=== PATIENT | female | born 1945 | race Caucasian/White ===

== ENCOUNTER 2017-07-21 13:24 | Emergency (ER) | payer MEDICARE ==
[2012-02-23 14:58] VITALS: BMI 46.6
== END 2017-07-21 18:15 | disposition home or self-care (01) ==
LOC: D.ER 13:24
DX: S89.91XA Unspecified injury of right lower leg, initial encounter (principal); W19.XXXA Unspecified fall, initial encounter; Y93.89 Activity, other specified; Y92.019 Unspecified place in single-family (private) house as the place of occurrence of the external cause; I10 Essential (primary) hypertension

== ENCOUNTER → 2017-08-30 16:08 | Outpatient (CLI) | payer OTHER ==
[2012-02-23 14:58] VITALS: BMI 46.6
== END | disposition home or self-care (01) ==
LOC: D.MRI 16:08
DX: M25.562 Pain in left knee (principal)

== ENCOUNTER → 2018-07-21 09:20 | Outpatient (CLI) | payer OTHER ==
[2012-02-23 14:58] VITALS: BMI 46.6
== END | disposition home or self-care (01) ==
LOC: D.LABREF 09:20
PROVIDERS: ATTEND Orthopaedic Surgery
DX: M17.12 Unilateral primary osteoarthritis, left knee (principal)

== ENCOUNTER 2018-07-26 11:14 | Inpatient (IN) | payer OTHER ==
[2018-08-09] MEDS ORDERED: triam/hctz (15:44)
[2018-08-09] MEDS ORDERED: MOBIC7.5 MG PO (15:45)
[2018-08-09] MEDS ORDERED: TOPROL XL25 MG PO (15:45)
[2018-08-09] MEDS ORDERED: [UNRECOGNIZED DRUG - REMARK] PO (15:46)
[2018-08-09] MEDS ORDERED: IPRAT-ALBUT 0.5-3 ML UPD (15:48)
[2018-08-10 10:59] LABS: APPEARANCE CLEAR (CLEAR); COLOR YELLOW (YELLOW); NITRITE NEGATIVE (NEGATIVE); SPECIFIC GRAVITY 1.005 (1.005-1.020)
[2018-08-10 11:00] LABS: BASOPHILS 0.2 % (0-2); EOSINOPHILS 1.1 % (0-7); HEMATOCRIT 40.5 % (36.0-48.0); HEMOGLOBIN 13.5 g/dL (12-16); IMMATURE GRANULOCYTES 0.3 % (0-5); LYMPHOCYTES 32.9 % (15-50); MCH 31.8 pg (26.0-34.0); MCHC 33.3 g/dL (31.0-37.0); MCV 95.3 fL (80.0-100.0); MEAN PLATELET VOLUME 10.1 fL (7.4-10.4); MONOCYTES 7.9 % (2-11); NEUTROPHILS 57.6 % (40-80); PLATELET COUNT 189 10x3/uL (130-400); RBC 4.25 10x6/uL (4.00-5.40); RDW 14.2 % (11.5-14.5); WBC 6.6 10x3/uL (4.8-10.8)
[2018-08-10 11:00] LABS: BILIRUBIN NEGATIVE (NEGATIVE); GLUCOSE NEGATIVE (NEGATIVE); KETONE NEGATIVE (NEGATIVE); PROTEIN NEGATIVE (NEGATIVE); UROBILINOGEN NORMAL (NORMAL)
[2018-08-10 11:14] LABS: CALC OSMOLALITY 284 mosm/kg (275-300); CALCIUM 8.7 mg/dL (8.5-10.1); CARBON DIOXIDE 32.6 mmol/L (21.0-32.0); CHLORIDE - SERUM 105 mmol/L (98-107); CREATININE - SERUM 0.8 mg/dL (0.6-1.3); GLUCOSE 90 mg/dL (74-106); POTASSIUM - SERUM 3.7 mmol/L (3.5-5.1); SODIUM 142 mmol/L (136-145); UREA NITROGEN 19 mg/dL (7-18); eGFR NON AFRICAN AMERICAN 75 mL/min (90-120)
[2018-08-10 11:18] LABS: APTT 27.4 SECONDS (22.8-39.4); INR 1.02 (0.85-1.17); PROTIME 12.9 SECONDS (11.6-15.0)
[2018-08-16 06:22] VITALS: BP 153/77; BMI 43.6
--- NOTE | 2018-08-16 08:21 | NUR ---
PLASMA BLADE SET TO 6/8 BOVIE PAD RIGHT THIGH [id number] EXP 10/15/2019
--- NOTE | 2018-08-16 08:26 | NUR ---
PREPPED FROM TOURNIQUET TO TOES CIRCUMFERENTIALLY
--- NOTE | 2018-08-16 11:16 | OP ---
PATIENT NAME: LUIS A BRYAN MEDICAL RECORD: [id number] :[birth year] [place] [place] DATE:08/16/18 SURGEON: YONI AMBRIZ DO DATE OF OPERATION: 08/16/2018 PROCEDURE PERFORMED: Left total knee arthroplasty. PREOPERATIVE DIAGNOSIS: Left knee osteoarthritis. POSTOPERATIVE DIAGNOSIS: Left knee osteoarthritis. INDICATIONS: Ms. Bryan is a 72-year-old female, who has had all conservative measures tried with her knee. She was complaining of pain and it was affecting her activities of daily living. She had x-rays done and it showed severe end-stage osteoarthritis. This was noted on the x-rays. She had tried injections. She is also overweight. Her BMI is 43. She is aware of the increased risk of failure of the implant as well as infection due to her weight. She was okay with that risk. She is tired dealing with the pain. The other risks including fracture, bleeding, damage to nerve and vessels, need for further surgery, and she signed the consent. SURGEON: Yoni Ambriz DO. SPRAY STAINER: I was assisted by Mando Novak, advanced nurse practitioner. He assisted with retraction and closing. This could not have been performed without him. DESCRIPTION OF PROCEDURE: The patient was given a block by anesthesia in the preoperative area and taken to the operative suite, laid in the supine position, given general anesthetic and an LMA was placed. The left lower extremity was prepped and draped in sterile fashion. The patient was given 2 grams of Ancef and 80 mg of gentamicin preoperatively and a gram of TXA. Once the left lower extremity was prepped and draped, a time-out was then performed and everyone was in agreement with the correct site, side, patient, and procedure. Fire risk was low. The incision was marked out and then covered in Ioban. Then began with a 10 blade scalpel down to the capsule itself. Capsule was cleared off. Any bleeders were coagulated with Aquamantys at that time. A fresh blade was then used through the medial parapatellar approach to the capsule and the bleeding was coagulated with Aquamantys. The patella was then everted and the fat pad was partially removed. The patella was milled down and sized to be a 31. The knee was then flexed up and a drill was used into the femoral canal. The distal femur cutting guide was then entered into the canal and pinned into place. The distal femur was then cut and the bone was removed. The tibia was then exposed. The proximal tibia was cut as well through the guide. The bone was then removed as well as the menisci on the medial and lateral sides and any bony fragments that were left. We then sized the femur, sized to be a 60. The 4-in-1 cutting block was then put into place and the femur was cut. Once the femur was cut, a PS guide was put on and the box was cut out for the posterior stabilized femur. This was done due to her instability that was checked prior to starting and the deformity of her knee. The lug holes were then drilled through that guide. This was removed and the 60 trial was put on and then the tibia was floated and ranged and rotation was marked. The patella was then drilled through the guide and this was all removed, tibia and femur. The tibia was exposed. Size of to be 67. This was drilled and punched and then irrigated. Extra holes were punched into the proximal tibia. Once that had OPERATIVE REPORT [id number] LUIS A BRYAN been drilled and punched, the cement was mixed. The cement was put into the tibia and on the implant, impacted in place. Excess cement was removed. The femur was then impacted on and the poly was put in-between. The knee was brought out to extension. Excess cement was removed. At that time, the poly on the patella was put on and held into place while the cement dried. Once the cement had dried, the knee had been thoroughly irrigated during the drying. A trial of 14 poly seemed to fit well, had good medial and lateral stability and good in extension and flexion and filled up the knee nicely. She did not hyperextend and she had good range of motion with this. A 16 was tried to be put in, but was too tight. Once the trial was tried and then the actual implant was opened and a 14 posterior stabilized constraint bearing poly was put in and the locking mechanism was put in on the tibia. The knee was then irrigated one more time and Surgicel powder as well as vancomycin and tobramycin powder put in the knee. The capsule was then closed with #2 Ethibond in a [id number] fashion and the capsule was irrigated. Extra vancomycin and tobramycin powder was put on that. Skin was closed with 2-0 Vicryl in an inverted interrupted fashion. ZipLine was placed on the knee. Adaptic, 4 x 4s, ABD, Webril and Benjamin wrap were then placed on the knee. NASIR hose stocking was placed up to the knee. The patient was awakened and taken to recovery in stable condition. Blood loss was approximately 200 mL. A second gram of TXA was given prior to closing the skin. Complications were none. TRANSINT:[id number] Voice Confirmation ID: [id number] DOCUMENT ID: [id number] YONI AMBRIZ DO at 1116 CC: [id number] DICTATION DATE: 08/16/18 0939 DIRECTOR OF SPORTS PERFORMANCE: 08/16/18 1009 ADM IN [place] [id number] [place] [address]
[2018-08-16 16:05] VITALS: BP 109/74
[2018-08-16 16:35] VITALS: BP 122/79; BMI 43.6
--- NOTE | 2018-08-16 20:00 | NUR ---
RESTING IN BED, CPM IN USE, DENIES PAIN, SEE SHIFT ASSESSMENT, CALL LIGHT IN REACH
[2018-08-16 22:16] VITALS: BP 118/57
[2018-08-17 04:51] VITALS: BP 112/46
[2018-08-17 05:42] LABS: BASOPHILS 0.2 % (0-2); EOSINOPHILS 0.2 % (0-7); HEMATOCRIT 36.4 % (36.0-48.0); HEMOGLOBIN 11.7 g/dL (12-16); IMMATURE GRANULOCYTES 0.3 % (0-5); LYMPHOCYTES 11.4 % (15-50); MCH 31.1 pg (26.0-34.0); MCHC 32.1 g/dL (31.0-37.0); MCV 96.8 fL (80.0-100.0); MEAN PLATELET VOLUME 11.2 fL (7.4-10.4); MONOCYTES 7.2 % (2-11); NEUTROPHILS 80.7 % (40-80); PLATELET COUNT 170 10x3/uL (130-400); RBC 3.76 10x6/uL (4.00-5.40); RDW 14.3 % (11.5-14.5); WBC 6.1 10x3/uL (4.8-10.8)
[2018-08-17 05:49] LABS: CALC OSMOLALITY 282 mosm/kg (275-300); CALCIUM 8.4 mg/dL (8.5-10.1); CARBON DIOXIDE 31.1 mmol/L (21.0-32.0); CHLORIDE - SERUM 103 mmol/L (98-107); CREATININE - SERUM 0.7 mg/dL (0.6-1.3); GLUCOSE 107 mg/dL (74-106); SODIUM 140 mmol/L (136-145); UREA NITROGEN 23 mg/dL (7-18); eGFR NON AFRICAN AMERICAN 88 mL/min (90-120)
--- NOTE | 2018-08-17 07:58 | NUR ---
PT RESTING IN BED. "WAITING ON BREAKFAST". NO S/S OF ACUTE DISTRESS. CL IN PLACE.
[2018-08-17 08:30] VITALS: BP 120/54
[2018-08-17 12:11] VITALS: BMI 43.5
[2018-08-17 14:08] VITALS: BP 105/52
[2018-08-17 16:44] VITALS: BP 119/71
--- NOTE | 2018-08-17 20:00 | NUR ---
RESTING IN BED CPM IN USE, DENIES PAIN, SEE SHIFT ASSESSMENT, CALL LIGHT IN REACH
[2018-08-17 22:53] VITALS: BP 108/54
[2018-08-18 05:24] VITALS: BP 134/56
[2018-08-18 06:45] LABS: BASOPHILS 0.2 % (0-2); EOSINOPHILS 0.6 % (0-7); HEMATOCRIT 35.3 % (36.0-48.0); HEMOGLOBIN 11.3 g/dL (12-16); IMMATURE GRANULOCYTES 0.8 % (0-5); MCV 96.7 fL (80.0-100.0); MEAN PLATELET VOLUME 10.8 fL (7.4-10.4); MONOCYTES 14.4 % (2-11); PLATELET COUNT 152 10x3/uL (130-400); RBC 3.65 10x6/uL (4.00-5.40); RDW 14.3 % (11.5-14.5); WBC 6.6 10x3/uL (4.8-10.8)
[2018-08-18 07:01] LABS: CALC OSMOLALITY 281 mosm/kg (275-300); CALCIUM 8.1 mg/dL (8.5-10.1); CARBON DIOXIDE 29.5 mmol/L (21.0-32.0); CHLORIDE - SERUM 102 mmol/L (98-107); CREATININE - SERUM 0.6 mg/dL (0.6-1.3); GLUCOSE 106 mg/dL (74-106); POTASSIUM - SERUM 3.7 mmol/L (3.5-5.1); SODIUM 140 mmol/L (136-145); UREA NITROGEN 20 mg/dL (7-18); eGFR NON AFRICAN AMERICAN > 90 mL/min (90-120)
--- NOTE | 2018-08-18 08:02 | NUR ---
INCONTINENT OF URINE. SKIN CARE AND LINENS CHANGED PER STAFF. A/O X3. NO C/O AT THIS TIME. LUNGS ARE DIMINISHED ON RIGHT SIDE WITH FAINT CRACKELS NOTED THROUGHOUT, ENCOURAGED TO USE IS WA. SKIN IS INTACT WITHOUT REDNESS EXCPET INCISION TO LEFT KNEE WHICH HAS A DRY INTACT DRESSING IN PLACE. IV TO RIGHT FOREARM IS PATENT WITHOUT REDNESS AT INSERTION SITE. DENIES NEEDS.
[2018-08-18 08:40] VITALS: BP 144/78
--- NOTE | 2018-08-18 09:14 | MORECARE ---
CASE MANAGEMENT DISCHARGE SUMMARY PATIENT: LUIS A QUINONES CELESTINO UNIT: [id number] ADM DATE: 08/16/18 AGE: 72 : [birth year] SEX: F ROOM/BED: D.2209 AUTHOR: HIRAL BLACKMON PHYSICIAN: REFERRING PHYSICIAN: DANIELA AMBRIZ DO DATE OF SERVICE: 08/18/18 Discharge Plan Patient Name: LUIS A QUINONES Facility: [facility]:[place] : 1945 Planned Disposition: Anticipated Discharge Date: Discharge Date: Expected LOS: Initial Reviewer: [email or web address] Initial Review Date: 08/16/2018 Generated: 08/18/18 10:13 am Comments DCP- Discharge Planning Updated by [email or web address]: Angeline Hartman on 08/18/18 8:[address] REFERRAL SENT TO [facility] (DR AMBRIZ STATED THAT IS WHERE THE PATIENT WANTS TO GO) TO START THE AUTH PROCESS. External Providers External Provider: [facility] Next Contact Date: Service Request Date: Service Type: Resolution: Reviewer: Comments: Patient Name: LUIS A QUINONES Page 19709 at 0914 All edits/amendments must be made on the electronic document DICTATION DATE: 08/18/18912 MACHINE RUG CLEANER: CLIFF 08/18/18912 RPT#: [id number] DC DATE: STATUS: ADM IN [place] [address] [place] [address] END OF REPORT
--- NOTE | 2018-08-18 11:17 | NUR ---
pt sitting p in chair at bedside, no s/s of distress, call light in reach, pt resting, easily awakened. continue with plan of care
[2018-08-18 12:40] VITALS: BP 127/63
[2018-08-18 17:34] VITALS: BP 126/69
--- NOTE | 2018-08-18 20:00 | NUR ---
ALERT RESTING IN BED, CPM IN USE TOLERATING WELL, SEE SHIFT ASSESSMENT, CALL LIGHT IN REACH
[2018-08-19 00:09] VITALS: BP 109/55
[2018-08-19 04:59] VITALS: BP 118/69
[2018-08-19 05:44] LABS: HEMATOCRIT 33.4 % (36.0-48.0); HEMOGLOBIN 11.3 g/dL (12-16); MCH 32.2 pg (26.0-34.0); MCHC 33.8 g/dL (31.0-37.0); MCV 95.2 fL (80.0-100.0); MEAN PLATELET VOLUME 10.7 fL (7.4-10.4); NEUTROPHILS 58.3 % (40-80); PLATELET COUNT 147 10x3/uL (130-400); RBC 3.51 10x6/uL (4.00-5.40); RDW 13.5 % (11.5-14.5); WBC 6.9 10x3/uL (4.8-10.8)
[2018-08-19 05:45] LABS: CALC OSMOLALITY 279 mosm/kg (275-300); CALCIUM 8.3 mg/dL (8.5-10.1); CARBON DIOXIDE 32.3 mmol/L (21.0-32.0); CHLORIDE - SERUM 103 mmol/L (98-107); CREATININE - SERUM 0.6 mg/dL (0.6-1.3); GLUCOSE 101 mg/dL (74-106); POTASSIUM - SERUM 3.4 mmol/L (3.5-5.1); SODIUM 139 mmol/L (136-145); UREA NITROGEN 18 mg/dL (7-18); eGFR NON AFRICAN AMERICAN > 90 mL/min (90-120)
--- NOTE | 2018-08-19 07:30 | NUR ---
PT RESTING IN BED WITH EYES CLOSED. NO ACUTE DISTRESS NOTED. OPENS EYES AND RESPONDS APPROPRIATELY WITH NAME CALLED. PT INCONTINENT OF URINE AT THIS TIME. PROVIDED LALO CARE. IV TO RIGHT FOREARM WITH NS @ 20ML/HR INFUSING VIA PUMP. SITE WITHOUT REDNESS OR EDEMA. DRESSING C/D/I TO LEFT LOWER EXTREMITY. DENIES PAIN AT THIS TIME. DENIES FURTHER NEEDS AT THIS TIME. CL WITHIN REACH. ENCOURAGED TO CALL WITH NEEDS. CONTINUE POC
[2018-08-19 09:25] VITALS: BP 115/55
[2018-08-19 13:28] VITALS: BP 119/42
--- NOTE | 2018-08-19 14:25 | MORECARE ---
CASE MANAGEMENT DISCHARGE SUMMARY PATIENT: LUIS A QUINONES CELESTINO UNIT: [id number] ADM DATE: 08/16/18 AGE: 72 : 47 SEX: F ROOM/BED: D.2205 AUTHOR: HIRAL BLACKMON PHYSICIAN: REFERRING PHYSICIAN: DANIELA AMBRIZ DO DATE OF SERVICE: 08/19/18 Discharge Plan Patient Name: LUIS A QUINONES Facility: [facility]:[place] : 1945 Planned Disposition: Fdc Facility Anticipated Discharge Date: Discharge Date: Expected LOS: Initial Reviewer: [id number] Initial Review Date: 08/16/2018 Generated: 08/19/18 3:25 pm Comments DCP- Discharge Planning Updated by [email or web address]: Angeline Hartman on 08/19/18 1:[address] Patient Name: LUIS A QUINONES Admission Status: Elective Accout number: [id number] Admission Date: 08-16-2018 : 1945 Admission Diagnosis:UNILATERAL PRIMARY OSTEOARTHRITIS, LEFT KNEE Attending: DANIELA AMBRIZ Current LOS: 3 Anticipated DC Date: Planned Disposition: Fdc Facility Primary Insurance: [id number] Discharge Planning Comments: CM met with patient to assess discharge planning needs. Patient stated that she lives independent with her daughter. At discharge she plans to go to [facility] for rehab. She stated that her daughter work there and that is where she wants to go. She has a managed medicare, so she will need pre-auth before she can go. I called Farida at [facility] and she stated that they will not have a room till wed or and she can not start on the auth till closer to then because they are only good for 48 hours. I went and spoke with patient again and she still wants [facility]. CM will continue to follow and assist. Inspecting Engineer: Angeline Hartman DCP- Discharge Planning Updated by [id number]: Angeline Hartman on 08/18/18 8:[address] REFERRAL SENT TO [facility] (DR AMBRIZ STATED THAT IS WHERE THE PATIENT WANTS TO GO) TO START THE AUTH PROCESS. DCPIA - Discharge Planning Initial Assessment Updated by [email or web address]: Angeline Hartman on 08/19/18 2:20 pm * Is the patient Alert and Oriented? Yes * How many steps to enter\exit or inside your home? * PCP THELMA * [facility] * Preadmission Environment Home with Family * ADLs Independent * Equipment Cane Walker * List name and contact numbers for known caregivers / representatives who currently or will assist patient after discharge: TETO BARNETT (DAUGHTER) [phone] * Verbal permission to speak to the caregivers and representatives has been obtained from the patient. N/A * Community resources currently utilized None * Additional services required to return to the preadmission environment? Yes * Can the patient safely return to the preadmission environment? No * Has this patient been hospitalized within the prior 30 days at any hospital? No Coverage Notice Reviewer: [id number] - Angeline Hartman Notice Issued Date-Time: 08/19/2018 14:10 Notice Type: Patient Choice Letter Notice Delivered To: Patient Relationship to Patient: Professor Of Latin American Studies Name: Delivery Method: HAND - Hand Delivered Maria C Days: Prior Verbal Notification: Recipient Understood Notice: Yes Recipient Signature: Yes Med Rec Note Co-signed by Attending: Coverage Notice Comment: Last DP export: 08/18/18 8:14 a Patient Name: LUIS A QUINONES Page [phone] at 1429 All edits/amendments must be made on the electronic document DICTATION DATE: 08/19/181423 GROUT MACHINE TENDER: CLIFF 08/19/181423 RPT#: [id number] DC DATE: STATUS: ADM IN [facility] [address] [place] [address] END OF REPORT
--- NOTE | 2018-08-19 14:28 | NUR ---
OT NOTE: PT RETURNED FROM CHAIR TO BED WITH ASSIST OF PHYSICAL THERAPY AND MAX ASSIST. PT WAS UNABLE TO BEAR WT THROUGH L LE. BED MOB BACK TO BED WITH MOD ASSIST WITH USE OF TRAPEZE BAR. PT PLACED ON CPM. PT ABLE TO PERFORM UE STRENGTHENING EXS WITH USE OF TRAPEZE BAR. WILL ATTEMPT TO RETURN FOLLOWING CPM USAGE TO PRACTICED EOB SITTING. LINDA TYSON, OTR/L
[2018-08-19 17:06] VITALS: BP 145/64
--- NOTE | 2018-08-19 19:00 | NUR ---
REPORT RECEIVED AND CARE OF PT ASSUMED. PT LYING IN SUPINE POSITION WATCHING TV. IV IN RIGHT FA PATENT WITH NS INFUSING AT KVO. DRESSING ON LEFT KNEE CLEAN AND DRY. WILL MONITOR FOR NEEDS.
[2018-08-19 21:20] VITALS: BP 118/54
--- NOTE | 2018-08-19 21:32 | NUR ---
HS MEDICATIONS GIVEN. ASSISTED PT TO USE BEDPAN AND CHANGED BEDPADS. WILL CONTINUE TO MONITOR FOR NEEDS.
--- NOTE | 2018-08-19 22:22 | NUR ---
GAVE BENADRYL 25 MG IVP PER PT REQUEST ASA SLEEP AIDE. WILL CONTINUE TO MONITOR FOR NEEDS.
--- NOTE | 2018-08-20 02:06 | NUR ---
GAVE OXY 10 MG PO AND VISTARIL FOR C/O PAIN AND RESTLESSNESS. ASSISTED IN CHANGING BED DUE TO INCONTINENCE EPISODE. WILL CONTINUE TO MONITOR FOR NEEDS.
[2018-08-20 05:43] LABS: BASOPHILS 0.1 % (0-2); EOSINOPHILS 0.9 % (0-7); HEMATOCRIT 33.9 % (36.0-48.0); HEMOGLOBIN 11.1 g/dL (12-16); IMMATURE GRANULOCYTES 0.5 % (0-5); LYMPHOCYTES 30.1 % (15-50); MCH 31.2 pg (26.0-34.0); MCHC 32.7 g/dL (31.0-37.0); MCV 95.2 fL (80.0-100.0); MEAN PLATELET VOLUME 10.8 fL (7.4-10.4); MONOCYTES 11.7 % (2-11); NEUTROPHILS 56.7 % (40-80); PLATELET COUNT 174 10x3/uL (130-400); RBC 3.56 10x6/uL (4.00-5.40); WBC 7.5 10x3/uL (4.8-10.8)
[2018-08-20 05:59] LABS: CALC OSMOLALITY 285 mosm/kg (275-300); CALCIUM 8.3 mg/dL (8.5-10.1); CHLORIDE - SERUM 104 mmol/L (98-107); CREATININE - SERUM 0.6 mg/dL (0.6-1.3); GLUCOSE 100 mg/dL (74-106); POTASSIUM - SERUM 3.4 mmol/L (3.5-5.1); SODIUM 143 mmol/L (136-145); UREA NITROGEN 15 mg/dL (7-18); eGFR NON AFRICAN AMERICAN > 90 mL/min (90-120)
--- NOTE | 2018-08-20 07:28 | NUR ---
PT IS RESTING IN BED WITH EYES CLOSED. RESPIRATIONS ARE EVEN AND UNLABORED. PT REQUESTS ASSISTANCE FOR BED CORCORAN. PT ASSISTED ON BED CORCORAN. PT EDUCATED ON IMPORTANCE OF AMBULATION POST PROCEDURE. PT VERBALIZES UNDERSTANDING. PT REQUESTS TO NOT BE PLACED ON CPM MACHINE AT THIS TIME AND WOULD LIKE TO WAIT UNTIL AFTER BREAKFAST. PT TO NOTIFY NURSE WHEN PT IS FINISGHED WITH BREAKFAST. DRESSING TO LEFT KNEE IS C/D/I. PT DENIES PRESENCE OF N/V AND PAIN AT THIS TIME. BED IS IN THE LOWEST POSITION. CALL LIGHT AND BEDSIDE TABLE ARE WITHIN REACH. SIDE RAILS X 2. WILL CONT TO MONITOR.
[2018-08-20 09:08] VITALS: BP 143/65
[2018-08-20 12:53] VITALS: BP 156/68
[2018-08-20 18:39] VITALS: BP 131/61
--- NOTE | 2018-08-20 19:23 | NUR ---
PATIENT RESTING IN BED WITH EYES CLOSED AND NO S/S OF DISTRESS. PATIENT ON CPM MACHINE. BED IN LOWEST POSITION AND CALL LIGHT WITHIN REACH. WILL CONTINUE TO MONITOR.
[2018-08-20 19:53] VITALS: BP 123/85
[2018-08-21 04:58] VITALS: BP 114/60
[2018-08-21 05:36] LABS: BASOPHILS 0.4 % (0-2); EOSINOPHILS 0.5 % (0-7); HEMOGLOBIN 11.1 g/dL (12-16); IMMATURE GRANULOCYTES 0.5 % (0-5); LYMPHOCYTES 33.2 % (15-50); MCH 31.2 pg (26.0-34.0); MCHC 32.6 g/dL (31.0-37.0); MCV 95.5 fL (80.0-100.0); MEAN PLATELET VOLUME 10.6 fL (7.4-10.4); MONOCYTES 11.8 % (2-11); NEUTROPHILS 53.6 % (40-80); PLATELET COUNT 195 10x3/uL (130-400); RBC 3.56 10x6/uL (4.00-5.40); RDW 14.1 % (11.5-14.5); WBC 7.7 10x3/uL (4.8-10.8)
[2018-08-21 05:50] LABS: CALC OSMOLALITY 280 mosm/kg (275-300); CALCIUM 8.4 mg/dL (8.5-10.1); CARBON DIOXIDE 30.6 mmol/L (21.0-32.0); CHLORIDE - SERUM 100 mmol/L (98-107); CREATININE - SERUM 0.5 mg/dL (0.6-1.3); GLUCOSE 108 mg/dL (74-106); POTASSIUM - SERUM 3.8 mmol/L (3.5-5.1); SODIUM 139 mmol/L (136-145); UREA NITROGEN 18 mg/dL (7-18); eGFR NON AFRICAN AMERICAN > 90 mL/min (90-120)
--- NOTE | 2018-08-21 07:30 | NUR ---
AAOX4 RESP EVEN AND NONLABORED NO SIGNS OF DISTRESS NOTED, CMP ON AT THIS TIME PT LEG POSTIONED STRAIGHT AT THIS TIME CMP WORKING PROPERLY, CL IN REACH WILL CONTINUE TO MONITOR
--- NOTE | 2018-08-21 08:00 | NUR ---
UPON ENTERING THE ROOM THE PT HAD HER LEFT LEG TO THE SIDE AND HER KNEE WAS BENT OUT TOWARDS THE LEFT, PT STATES "SHE CAN NOT KEEP HER LEG AND KNEE STRAIGHT IN THE MACHINE" I EXPRESSED THE IMPORTANCE OF KEEPING HER LEG AND KNEE IN THE CMP PROPERLY AND THE PT EXPRESSED "YOU ALL ARE JUST STUPID AND DONT UNDERSTAND" I TOLD THE PT I WOULD LET THE DR KNOW WHAT WAS GOING ON, CL IN REACH
--- NOTE | 2018-08-21 09:00 | NUR ---
PHYSICAL THERAPY GLADYS STATED "HE WILL TALK TO AND TO ONLY HAVE THE PT ON THE CMP ONCE A DAY AND THAT HE WOULD BE THE ONE TO PUT IT ON HER" HE ALSO STATED "SHE IS ONLY ASSIST WITH PHYSICAL THERAPY AND TO NOT TRY AND GET THE PT UP"
[2018-08-21 09:26] VITALS: BP 142/74
[2018-08-21 13:27] VITALS: BP 152/75
--- NOTE | 2018-08-21 13:30 | NUR ---
CMP ON AT THIS TIME PER GLADYS PHYSICL THERAPY PT CAN COME OFF AT 1430
--- NOTE | 2018-08-21 14:23 | NUR ---
OT NOTE: PT WAS UP IN CHAIR..PREVIOUSLY DISCUSSED WITH PHYS THERAPY WHO STATED THAT HE HAD TO PIVOT HER WITH TOTAL ASSIST FROM BED TO CHAIR EARLIER. WE ATTEMPTED TO USE WALKER TO TRANSFER,WITH 2 PERSON ASSIST, BUT SEVERAL ATTEMTPS WERE MADE AND PT WAS UNABLE TO HOLD HERSELF UP WITH UES AND R LE. AGAIN PT WAS TRANSFERRED TO BED PIVOT AND TOTAL ASSIST. PT DOING WELL WITH BED MOB AND ABLE TO ROLL SIDE TO SIDE AND SCOOT UP IN BED ( WITH ASSIST OF TRAPEZE)..ABLE TO COMPLETE SIMPLE GROOMING TASKS, BUT TOTAL ASSIST WITH PERINEAL CARE AT THIS TIME. LINDA TYSON, OTR/L
--- NOTE | 2018-08-21 14:30 | NUR ---
CMP TAKEN OFF AT THIS TIME, WILL CONTINUE TO MONITOR, CL IN REACH
[2018-08-21 18:09] VITALS: BP 122/62
--- NOTE | 2018-08-21 19:46 | NUR ---
NOTIFIED BY THE STOCK HANDLER FLOORPERSON THAT THE PATIENT TOLD HIM SHE DID NOT WANT VITALS AND TOLD HIM TO GET OUT OF HER ROOM. I ENTERED THE PATIENT'S ROOM, INTRODUCED MYSELF, AND ASKED THE PATIENT WHY SHE DOES NOT WANT VITALS DONE. THE PATIENT STATED THAT THE STOCK HANDLER FLOORPERSON COULD COME BACK AND DO VITALS. PATIENT DENIES OTHER NEEDS AT THIS TIME. BED IN LOWEST POSITION AND CALL LIGHT WITHIN REACH. ENCOURAGED THE PATIENT TO CALL IF SHE HAS NEEDS. WILL CONTINUE TO MONITOR.
[2018-08-21 21:05] VITALS: BP 111/57
[2018-08-22 01:21] VITALS: BP 112/52
[2018-08-22 05:17] LABS: BASOPHILS 0.3 % (0-2); EOSINOPHILS 0.3 % (0-7); HEMATOCRIT 34.3 % (36.0-48.0); HEMOGLOBIN 11.4 g/dL (12-16); IMMATURE GRANULOCYTES 0.7 % (0-5); MCH 31.7 pg (26.0-34.0); MCHC 33.2 g/dL (31.0-37.0); MCV 95.3 fL (80.0-100.0); MONOCYTES 11.7 % (2-11); PLATELET COUNT 214 10x3/uL (130-400); RDW 13.8 % (11.5-14.5); WBC 8.6 10x3/uL (4.8-10.8)
[2018-08-22 05:35] LABS: CALC OSMOLALITY 280 mosm/kg (275-300); CALCIUM 8.9 mg/dL (8.5-10.1); CARBON DIOXIDE 31.6 mmol/L (21.0-32.0); CHLORIDE - SERUM 99 mmol/L (98-107); GLUCOSE 114 mg/dL (74-106); POTASSIUM - SERUM 3.6 mmol/L (3.5-5.1); SODIUM 139 mmol/L (136-145); UREA NITROGEN 19 mg/dL (7-18); eGFR NON AFRICAN AMERICAN 88 mL/min (90-120)
[2018-08-22 05:36] LABS: CREATININE - SERUM 0.7 mg/dL (0.6-1.3)
[2018-08-22 05:49] VITALS: BP 136/58
--- NOTE | 2018-08-22 07:15 | NUR ---
PATIENT RECIEVED RESTING IN BED, ASSISTED WITH BEDPAN. PATIENT DENIES PAIN AT THIS TIME. CL IN REACH
[2018-08-22 08:31] VITALS: BP 114/75
[2018-08-22 13:25] VITALS: BP 124/76
--- NOTE | 2018-08-22 14:58 | NUR ---
OT NOTE: PT REMAINS AT LEAST A 2 PERSON ASSIST WITH TRANSFERS. ATTEMPTED TRANSFER WITH 1 PERSON ON EACH SIDE AND ONE PERSON IN THE BACK TO HELP GET PT BACK INTO BED. SHE DOES NOT HAVE THE UE STRENGTH TO SUPPORT HERSELF WITH WALKER. MAX ASSIST TO GET LEGS BACK IN BED; EDUCATION ON USING FEET AND TRAPEZE TO MOVE IN THE BED..PT DOING WELL WITH THIS. TRANSFERS ARE NOT IMPROVING. ABLE TO PERFORM SIMPLE GROOMING AND FEEDING TASKS WITH SET UP; EDUCATED PT ON UE EXS TO PERFORM WITH USE OF TRAPEZE AND OTHER AROM EXS. LINDA TYSON, OTR/L
[2018-08-22 17:06] VITALS: BP 111/59
--- NOTE | 2018-08-22 19:53 | NUR ---
PATIENT RESTING IN BED WITH NO S/S OF DISTRESS. BROUGHT THE PATIENT WATER PER HER REQUEST. PATIENT DENIES OTHER NEEDS AT THIS TIME. BED IN LOWEST POSITION AND CALL LIGHT WITHIN REACH. ENCOURAGED THE PATIENT TO CALL IF SHE HAS NEEDS. WILL CONTINUE TO MONITOR.
[2018-08-22 20:00] VITALS: BP 114/61
[2018-08-23] VITALS: BP 123/79
[2018-08-23 04:00] VITALS: BP 118/62
[2018-08-23 05:26] LABS: BASOPHILS 0.3 % (0-2); EOSINOPHILS 0.2 % (0-7); HEMATOCRIT 34.6 % (36.0-48.0); HEMOGLOBIN 11.1 g/dL (12-16); LYMPHOCYTES 30.4 % (15-50); MCH 30.4 pg (26.0-34.0); MCHC 32.1 g/dL (31.0-37.0); MCV 94.8 fL (80.0-100.0); MEAN PLATELET VOLUME 9.8 fL (7.4-10.4); MONOCYTES 11.5 % (2-11); NEUTROPHILS 56.6 % (40-80); PLATELET COUNT 240 10x3/uL (130-400); RBC 3.65 10x6/uL (4.00-5.40); RDW 13.6 % (11.5-14.5); WBC 9.3 10x3/uL (4.8-10.8)
[2018-08-23 06:05] LABS: CALC OSMOLALITY 279 mosm/kg (275-300); CARBON DIOXIDE 31.9 mmol/L (21.0-32.0); CHLORIDE - SERUM 100 mmol/L (98-107); CREATININE - SERUM 0.7 mg/dL (0.6-1.3); GLUCOSE 116 mg/dL (74-106); MAGNESIUM - SERUM 2.2 mg/dL (1.8-2.4); POTASSIUM - SERUM 3.7 mmol/L (3.5-5.1); SODIUM 138 mmol/L (136-145); UREA NITROGEN 22 mg/dL (7-18); eGFR NON AFRICAN AMERICAN 88 mL/min (90-120)
--- NOTE | 2018-08-23 07:15 | NUR ---
PATIENT RECIEVED RESTING IN BED, POST OA LEFT KNEE. DRESSING C/D/I. DENIES NEEDS AT THIS TIME, CL IN REACH
--- NOTE | 2018-08-23 07:30 | NUR ---
PATIENT RECIEVED RESTING IN BED, NO NEEDS VOICED. CL IN REACH
[2018-08-23 09:14] VITALS: BP 117/63
--- NOTE | 2018-08-23 10:41 | NUR ---
Nutrition Follow Up: Chart reviewed. Pt is POD 7 L TKA. Pt is eating 100% meal avg on a regular soft diet. +BM 08/23/18. Meds and labs reviewed. Pt continues at low nutritional risk. RD following.
[2018-08-23 13:45] VITALS: BP 119/66
[2018-08-23 16:55] VITALS: BP 97/55
[2018-08-23 20:00] VITALS: BP 117/54
--- NOTE | 2018-08-23 20:00 | NUR ---
OT NOTE: PT COMPLETED BED MOB WITH MAX A. PT COMPLETED SIT TO STAND WITH MAX A. PT COMPLETED SIMPLE GROOMING TASKS AT EOB WITH SET UP. PT FATIGUES EASILY BUT WAS MOTIVATED DURING SESSION. THANK YOU, LAMONT DEL RIO
[2018-08-24] VITALS: BP 140/62
[2018-08-24 04:00] VITALS: BP 118/63
[2018-08-24 06:00] LABS: BASOPHILS 0.1 % (0-2); EOSINOPHILS 0.4 % (0-7); HEMATOCRIT 33.4 % (36.0-48.0); HEMOGLOBIN 10.8 g/dL (12-16); IMMATURE GRANULOCYTES 0.8 % (0-5); LYMPHOCYTES 28.2 % (15-50); MCHC 32.3 g/dL (31.0-37.0); MONOCYTES 10.1 % (2-11); NEUTROPHILS 60.4 % (40-80); PLATELET COUNT 275 10x3/uL (130-400); RBC 3.48 10x6/uL (4.00-5.40); RDW 13.8 % (11.5-14.5); WBC 9.2 10x3/uL (4.8-10.8)
[2018-08-24 06:10] LABS: CALC OSMOLALITY 280 mosm/kg (275-300); CALCIUM 8.5 mg/dL (8.5-10.1); CARBON DIOXIDE 30.6 mmol/L (21.0-32.0); CHLORIDE - SERUM 101 mmol/L (98-107); CREATININE - SERUM 0.8 mg/dL (0.6-1.3); GLUCOSE 118 mg/dL (74-106); MAGNESIUM - SERUM 2.3 mg/dL (1.8-2.4); POTASSIUM - SERUM 3.9 mmol/L (3.5-5.1); SODIUM 138 mmol/L (136-145); UREA NITROGEN 25 mg/dL (7-18); eGFR NON AFRICAN AMERICAN 75 mL/min (90-120)
--- NOTE | 2018-08-24 08:33 | MORECARE ---
CASE MANAGEMENT DISCHARGE SUMMARY PATIENT: LUIS A QUINONES CELESTINO UNIT: [id number] ADM DATE: 08/16/18 AGE: 72 : [birth year] SEX: F ROOM/BED: D.2200 AUTHOR: HIRAL BLACKMON PHYSICIAN: REFERRING PHYSICIAN: DANIELA AMBRIZ DO DATE OF SERVICE: 08/24/18 Discharge Plan Patient Name: LUIS A QUINONES Facility: [facility]:[place] : 1945 Planned Disposition: Penitentiary Facility Anticipated Discharge Date: Discharge Date: Expected LOS: Initial Reviewer: [email or web address] Initial Review Date: 08/16/2018 Generated: 08/24/18 9:33 am Comments DCP- Discharge Planning Updated by [id number]: Angeline Hartman on 08/24/18 7:[address] updated clinical sent to [facility] DCP- Discharge Planning Updated by [id number]: Angeline Hartman on 08/19/18 1:[address] Patient Name: LUIS A QUINONES Admission Status: Elective Accout number: [id number] Admission Date: 08-16-2018 : 1945 Admission Diagnosis:UNILATERAL PRIMARY OSTEOARTHRITIS, LEFT KNEE Attending: DANIELA AMBRIZ Current LOS: 3 Anticipated DC Date: Planned Disposition: Penitentiary Facility Primary [facility] Discharge Planning Comments: CM met with patient to assess discharge planning needs. Patient stated that she lives independent with her daughter. At discharge she plans to go to [facility] for rehab. She stated that her daughter work there and that is where she wants to go. She has a managed medicare, so she will need pre-auth before she can go. I called Farida at [facility] and she stated that they will not have a room till wed or and she can not start on the auth till closer to then because they are only good for 48 hours. I went and spoke with patient again and she still wants [facility]. CM will continue to follow and assist. Parts And Service Manager: Angeline Hartman DCP- Discharge Planning Updated by [email or web address]: Angeline Hartman on 08/18/18 8:[address] REFERRAL SENT TO [facility] (DR AMBRIZ STATED THAT IS WHERE THE PATIENT WANTS TO GO) TO START THE AUTH PROCESS. DCPIA - Discharge Planning Initial Assessment Updated by [email or web address]: Angeline Hartman on 08/19/18 2:20 pm * Is the patient Alert and Oriented? Yes * How many steps to enter\exit or inside your home? * PCP THELMA * [facility] [address] * Preadmission Environment Home with Family * ADLs Independent * Equipment Cane Walker * List name and contact numbers for known caregivers / representatives who currently or will assist patient after discharge: TETO BARNETT (DAUGHTER) [phone] * Verbal permission to speak to the caregivers and representatives has been obtained from the patient. N/A * Community resources currently utilized None * Additional services required to return to the preadmission environment? Yes * Can the patient safely return to the preadmission environment? No * Has this patient been hospitalized within the prior 30 days at any hospital? No Coverage Notice Reviewer: [email or web address] - Angeline Hartman Notice Issued Date-Time: 08/19/2018 14:10 Notice Type: Patient Choice Letter Notice Delivered To: Patient Relationship to Patient: Cloth Doffer Name: Delivery Method: HAND - Hand Delivered Maria C Days: Prior Verbal Notification: Recipient Understood Notice: Yes Recipient Signature: Yes Med Rec Note Co-signed by Attending: Coverage Notice Comment: Last DP export: 08/19/18 1:25 p Patient Name: LUI SA QUINONES Page [phone] at 0833 All edits/amendments must be made on the electronic document DICTATION DATE: 08/24/18831 DELIVERY SPECIALIST: CLIFF 08/24/18831 RPT#: [id number] DC DATE: STATUS: ADM IN [facility] [address] [place] [address] END OF REPORT
[2018-08-24 09:00] VITALS: BP 133/66
--- NOTE | 2018-08-24 10:04 | NUR ---
OT NOTE: PT PERFORMED VERY WELL TODAY. BED MOB WITH MIN ASSIST FOR ROLLING AND SUPINE TO SIT. INDEP WITH SITTING BALANCE. PT ABLE TO PERFORM SIT TO STAND WITH ASSIST X 2; ABLE TO STAND FOR APPROX 30 SEC X 4 TRIALS. ABLE TO TAKE SEVERAL STEPS BACKWARDS AND TO THE SIDE. ABLE TO DEMONSTRATE UE AND LE EXS FROM SUPINE; DOING WELL WITH POSITIONING SELF IN BED WITH USE OF TRAPEZE BAR. SIMPLE GROOMING TASKS WITH SET UP. LINDA TYSON, OTR/L
--- NOTE | 2018-08-24 10:04 | NUR ---
MORNING ASSESSMENT COMPLETE. SEE ASSESSMENT FLOWSHEET FOR FURTHER DETIALS. PT LYING IN BED AAO X4 TO PERSON, PALCE, TIME, AND SITUATION. DENIES NEEDS AT THIS TIME. CL IN REACH. SIDE RAILS UP X3 FOR PT SAFETY.
--- NOTE | 2018-08-24 11:38 | MORECARE ---
CASE MANAGEMENT DISCHARGE SUMMARY PATIENT: LUIS A QUINONES CELESTINO UNIT: [id number] ADM DATE: 08/16/18 AGE: 72 : 47 SEX: F ROOM/BED: D.2209 AUTHOR: NEYMAR,DOC PHYSICIAN: REFERRING PHYSICIAN: DANIELA AMBRIZ DO DATE OF SERVICE: 08/24/18 Discharge Plan Patient Name: LUIS A QUINONES Facility: [facility]:[place] : 1945 Planned Disposition: [facility]ci Facility Anticipated Discharge Date: Discharge Date: Expected LOS: Initial Reviewer: [id number] Initial Review Date: 08/16/2018 Generated: 08/24/18 12:38 pm Comments DCP- Discharge Planning Updated by [id number]: Angeline Hartman on 08/24/18 10:[address] spoke with farida at [facility] she is sending clinicals in before lunch. CM will continue to follow and assist with dc planning DCP- Discharge Planning Updated by [email or web address]: Angeline Hartman on 08/24/18 7:[address] updated clinical sent to [facility] DCP- Discharge Planning Updated by [id number]: Angeline Hartman on 08/19/18 1:[address] Patient Name: LUIS A QUINONES Admission Status: Elective Accout number: [id number] Admission Date: 08-16-2018 : 1945 Admission Diagnosis:UNILATERAL PRIMARY OSTEOARTHRITIS, LEFT KNEE Attending: DANIELA AMBRIZ Current LOS: 3 Anticipated DC Date: Planned Disposition: [facility] Facility [facility] Discharge Planning Comments: CM met with patient to assess discharge planning needs. Patient stated that she lives independent with her daughter. At discharge she plans to go to [facility] for rehab. She stated that her daughter work there and that is where she wants to go. She has a managed medicare, so she will need pre-auth before she can go. I called Farida at [facility] and she stated that they will not have a room till wed or and she can not start on the auth till closer to then because they are only good for 48 hours. I went and spoke with patient again and she still wants [facility]. CM will continue to follow and assist. Beck Operator: Angeline Hartman DCP- Discharge Planning Updated by [email or web address]: Angeline Hartman on 08/18/18 8:[address] REFERRAL SENT TO [facility] (DR AMBRIZ STATED THAT IS WHERE THE PATIENT WANTS TO GO) TO START THE AUTH PROCESS. DCPIA - Discharge Planning Initial Assessment Updated by [email or web address]: Angeline Hartman on 08/19/18 2:20 pm * Is the patient Alert and Oriented? Yes * How many steps to enter\exit or inside your home? * PCP THELMA * Pharmacy [facility] * Preadmission Environment Home with Family * ADLs Independent * Equipment Cane Walker * List name and contact numbers for known caregivers / representatives who currently or will assist patient after discharge: TETO BARNETT (DAUGHTER) [phone] * Verbal permission to speak to the caregivers and representatives has been obtained from the patient. N/A * Community resources currently utilized None * Additional services required to return to the preadmission environment? Yes * Can the patient safely return to the preadmission environment? No * Has this patient been hospitalized within the prior 30 days at any hospital? No Coverage Notice Reviewer: [id number] - Angeline Hartman Notice Issued Date-Time: 08/19/2018 14:10 Notice Type: Patient Choice Letter Notice Delivered To: Patient Relationship to Patient: Senior Treasury Consultant Name: Delivery Method: HAND - Hand Delivered Maria C Days: Prior Verbal Notification: Recipient Understood Notice: Yes Recipient Signature: Yes Med Rec Note Co-signed by Attending: Coverage Notice Comment: Last DP export: 08/24/18 7:33 am Patient Name: LUIS A QUINONES Page 13137 at 1138 All edits/amendments must be made on the electronic document DICTATION DATE: 08/24/18 1138 IT GENERALIST: CLIFF 08/24/18 1138 RPT#: [id number] [place] DATE: STATUS: ADM IN [facility] [address] [place] [address] END OF REPORT
--- NOTE | 2018-08-24 12:00 | MORECARE ---
CASE MANAGEMENT DISCHARGE SUMMARY PATIENT: LUIS A QUINONES CELESTINO UNIT: [id number] ADM DATE: 08/16/18 AGE: 72 : 47 SEX: F ROOM/BED: D.2209 AUTHOR: HIRAL BLACKMON PHYSICIAN: REFERRING PHYSICIAN: DANIELA AMBRIZ DO DATE OF SERVICE: 08/24/18 Discharge Plan Patient Name: LUIS A QUINONES Facility: [facility]:[place] : 1945 Planned Disposition: [facility]ci Facility Anticipated Discharge Date: Discharge Date: Expected LOS: Initial Reviewer: [id number] Initial Review Date: 08/16/2018 Generated: 08/24/18 12:59 pm Comments DCP- Discharge Planning Updated by [id number]: Angeline Hartman on 08/24/18 10:[address] Anticipated DC tomorrow to [facility]. IMM served and explained. DCP- Discharge Planning Updated by [email or web address]: Angeline Hartman on 08/24/18 10:[address] spoke with farida at [facility] she is sending clinicals in before lunch. CM will continue to follow and assist with dc planning DCP- Discharge Planning Updated by [email or web address]: Angeline Hartman on 08/24/18 7:[address] updated clinical sent to [facility] DCP- Discharge Planning Updated by [email or web address]: Angeline Hartman on 08/19/18 1:[address] Patient Name: LUIS A QUINONES Admission Status: Elective Accout number: [id number] Admission Date: 08-16-2018 : 1945 Admission Diagnosis:UNILATERAL PRIMARY OSTEOARTHRITIS, LEFT KNEE Attending: DANIELA AMBRIZ Current LOS: 3 Anticipated DC Date: Planned Disposition: [facility]ci Facility Primary Insurance: [facility] Discharge Planning Comments: CM met with patient to assess discharge planning needs. Patient stated that she lives independent with her daughter. At discharge she plans to go to [facility] for rehab. She stated that her daughter work there and that is where she wants to go. She has a managed medicare, so she will need pre-auth before she can go. I called Farida at [facility] and she stated that they will not have a room till wed or and she can not start on the auth till closer to then because they are only good for 48 hours. I went and spoke with patient again and she still wants [facility]. CM will continue to follow and assist. Shipping Clerk/Admin: Angeline Hartman DCP- Discharge Planning Updated by [email or web address]: Angeline Hartman on 08/18/18 8:[address] REFERRAL SENT TO [facility] (DR AMBRIZ STATED THAT IS WHERE THE PATIENT WANTS TO GO) TO START THE AUTH PROCESS. DCPIA - Discharge Planning Initial Assessment Updated by [email or web address]: Angeline Hartman on 08/19/18 2:20 pm * Is the patient Alert and Oriented? Yes * How many steps to enter\exit or inside your home? * PCP THELMA * [facility] * Preadmission Environment Home with Family * ADLs Independent * Equipment Cane Walker * List name and contact numbers for known caregivers / representatives who currently or will assist patient after discharge: TETO BARNETT (DAUGHTER) [phone] * Verbal permission to speak to the caregivers and representatives has been obtained from the patient. N/A * Community resources currently utilized None * Additional services required to return to the preadmission environment? Yes * Can the patient safely return to the preadmission environment? No * Has this patient been hospitalized within the prior 30 days at any hospital? No Coverage Notice Reviewer: [id number] Krysta Hartman Notice Issued Date-Time: 08/19/2018 14:10 Notice Type: Patient Choice Letter Notice Delivered To: Patient Relationship to Patient: Ampoule Washing Machine Operator Name: Delivery Method: HAND - Hand Delivered Maria C Days: Prior Verbal Notification: Recipient Understood Notice: Yes Recipient Signature: Yes Med Rec Note Co-signed by Attending: Coverage Notice Comment: Reviewer: [email or web address] Krysta Hartman Notice Issued Date-Time: 08/24/2018 11:50 Notice Type: IM Discharge Notice Notice Delivered To: Patient Relationship to Patient: Ampoule Washing Machine Operator Name: Delivery Method: HAND - Hand Delivered Maria C Days: Prior Verbal Notification: Recipient Understood Notice: Yes Recipient Signature: Yes Med Rec Note Co-signed by Attending: Coverage Notice Comment: Last DP export: 08/24/18 10:38 am Patient Name: LUIS A QUINONES Page 14190 at 1200 All edits/amendments must be made on the electronic document DICTATION DATE: 08/24/181158 MECHANICAL ASSEMBLER: CLIFF 08/24/181158 RPT#: [id number] DC DATE: STATUS: ADM IN [facility] [address] [place] [address] END OF REPORT
[2018-08-24 13:14] VITALS: BP 113/54
[2018-08-24 16:46] VITALS: BP 103/57
[2018-08-24 20:00] VITALS: BP 131/53
--- NOTE | 2018-08-24 20:00 | NUR ---
RESTING IN BED NO APPARENT DISTRESS, JENNIE WRAP DRESSIGN INTACT TO LEFT KNEE, SEE SHIFT ASSESSMENT, CALL LIGHT IN REACH
[2018-08-25] VITALS: BP 126/65
[2018-08-25 04:00] VITALS: BP 142/75
[2018-08-25 05:33] LABS: BASOPHILS 0.1 % (0-2); EOSINOPHILS 1.9 % (0-7); HEMATOCRIT 33.7 % (36.0-48.0); HEMOGLOBIN 10.9 g/dL (12-16); IMMATURE GRANULOCYTES 0.9 % (0-5); LYMPHOCYTES 49.2 % (15-50); MCH 31.1 pg (26.0-34.0); MCHC 32.3 g/dL (31.0-37.0); MCV 96.3 fL (80.0-100.0); MEAN PLATELET VOLUME 9.4 fL (7.4-10.4); MONOCYTES 7.8 % (2-11); NEUTROPHILS 40.1 % (40-80); PLATELET COUNT 280 10x3/uL (130-400); WBC 7.7 10x3/uL (4.8-10.8)
[2018-08-25 05:41] LABS: CALC OSMOLALITY 286 mosm/kg (275-300); CALCIUM 8.7 mg/dL (8.5-10.1); CARBON DIOXIDE 34.7 mmol/L (21.0-32.0); CHLORIDE - SERUM 104 mmol/L (98-107); CREATININE - SERUM 0.8 mg/dL (0.6-1.3); GLUCOSE 100 mg/dL (74-106); MAGNESIUM - SERUM 2.5 mg/dL (1.8-2.4); POTASSIUM - SERUM 3.5 mmol/L (3.5-5.1); SODIUM 142 mmol/L (136-145); UREA NITROGEN 25 mg/dL (7-18); eGFR NON AFRICAN AMERICAN 75 mL/min (90-120)
[2018-08-25] MEDS ORDERED: HYDROCODON-ACE1 EAC7 PO (06:50)
[2018-08-25] MEDS ORDERED: ELIQUIS2.5 MG PO (06:50)
[2018-08-25] MEDS ORDERED: KEFLEX500 MG PO (06:50)
--- NOTE | 2018-08-25 09:12 | NUR ---
ALERT AND ORIENTED X3. LUNGS CLEAR BILATERALLY IN ALL PANIAGUA. HEART SOUNDS S1 AND S2 HEARD IN ALL PANIAGUA. BOWEL SOUNDS ACTIVE X 4. SKIN INTACT WITHOUT REDNESS. IV TO RFA PATENT WITHOUT REDNESS. DENIES PAIN. DENIES NEEDS. WILL CONTINUE TO MONITOR.
[2018-08-25 09:20] VITALS: BP 117/64
--- NOTE | 2018-08-25 10:00 | NUR ---
RESTING IN BED. DENIES PAIN. DENIES NEEDS. WILL CONTINUE TO MONITOR.
--- NOTE | 2018-08-25 12:13 | MORECARE ---
CASE MANAGEMENT DISCHARGE SUMMARY PATIENT: LUIS A QUINONES CELESTINO UNIT: [id number] ADM DATE: 08/16/18 AGE: 72 : 47 SEX: F ROOM/BED: D.2204 AUTHOR: NEYMAR,DOC PHYSICIAN: REFERRING PHYSICIAN: DANIELA AMBRIZ DO DATE OF SERVICE: 08/25/18 Discharge Plan Patient Name: LUIS A QUINONES Facility: [facility]:[place] : 1945 Planned Disposition: Half-Way Facility Anticipated Discharge Date: Discharge Date: Expected LOS: Initial Reviewer: [id number] Initial Review Date: 08/16/2018 Generated: 08/25/18 1:13 pm Comments DCP- Discharge Planning Updated by [email or web address]: Angeline Hartman on 08/25/18 11:[address] Spoke with Farida at [facility] she is still waiting on Auth DCP- Discharge Planning Updated by [id number]: Angeline Hartman on 08/24/18 10:[address] Anticipated DC tomorrow to [facility]. IMM served and explained. DCP- Discharge Planning Updated by [email or web address]: Angeline Hartman on 08/24/18 10:[address] spoke with farida at [facility] she is sending clinicals in before lunch. CM will continue to follow and assist with dc planning DCP- Discharge Planning Updated by [id number]: Angeline Hartman on 08/24/18 7:[address] updated clinical sent to [facility] DCP- Discharge Planning Updated by [email or web address]: Angeline Hartman on 08/19/18 1:[address] Patient Name: LUIS A QUINONES Admission Status: Elective Accout number: [id number] Admission Date: 08-16-2018 : 1945 Admission Diagnosis:UNILATERAL PRIMARY OSTEOARTHRITIS, LEFT KNEE Attending: DANIELA AMBRIZ Current LOS: 3 Anticipated DC Date: Planned Disposition: Half-Way Facility Primary Insurance: [facility] Discharge Planning Comments: CM met with patient to assess discharge planning needs. Patient stated that she lives independent with her daughter. At discharge she plans to go to [facility] for rehab. She stated that her daughter work there and that is where she wants to go. She has a managed medicare, so she will need pre-auth before she can go. I called Farida at [facility] and she stated that they will not have a room till wed or and she can not start on the auth till closer to then because they are only good for 48 hours. I went and spoke with patient again and she still wants [facility]. CM will continue to follow and assist. Barrel Straightener: Angeline Hartman DCP- Discharge Planning Updated by [email or web address]: Angeline Hartman on 08/18/18 8:[address] REFERRAL SENT TO [facility] (DR AMBRIZ STATED THAT IS WHERE THE PATIENT WANTS TO GO) TO START THE AUTH PROCESS. DCPIA - Discharge Planning Initial Assessment Updated by [email or web address]: Angeline Hartman on 08/19/18 2:20 pm * Is the patient Alert and Oriented? Yes * How many steps to enter\exit or inside your home? * PCP THELMA * [facility] * Preadmission Environment Home with Family * ADLs Independent * Equipment Cane Walker * List name and contact numbers for known caregivers / representatives who currently or will assist patient after discharge: TETO BARNETT (DAUGHTER) [phone] * Verbal permission to speak to the caregivers and representatives has been obtained from the patient. N/A * Community resources currently utilized None * Additional services required to return to the preadmission environment? Yes * Can the patient safely return to the preadmission environment? No * Has this patient been hospitalized within the prior 30 days at any hospital? No Coverage Notice Reviewer: [id number] Krysta Hartman Notice Issued Date-Time: 08/19/2018 14:10 Notice Type: Patient Choice Letter Notice Delivered To: Patient Relationship to Patient: Landscape Specialist Name: Delivery Method: HAND - Hand Delivered Maria C Days: Prior Verbal Notification: Recipient Understood Notice: Yes Recipient Signature: Yes Med Rec Note Co-signed by Attending: Coverage Notice Comment: Reviewer: [id number] Hartman Notice Issued Date-Time: 08/24/2018 11:50 Notice Type: IM Discharge Notice Notice Delivered To: Patient Relationship to Patient: Landscape Specialist Name: Delivery Method: HAND - Hand Delivered Maria C Days: Prior Verbal Notification: Recipient Understood Notice: Yes Recipient Signature: Yes Med Rec Note Co-signed by Attending: Coverage Notice Comment: Last DP export: 08/24/18 11:00 am Patient Name: LUIS A QUINONES Page 16142 at 1213 All edits/amendments must be made on the electronic document DICTATION DATE: 08/25/18 1213 RISK MANAGER: CLIFF 08/25/18 1213 RPT#: [id number] DC DATE: STATUS: ADM IN [facility] [address] [place] [address] END OF REPORT
--- NOTE | 2018-08-25 12:22 | MORECARE ---
CASE MANAGEMENT DISCHARGE SUMMARY PATIENT: LUIS A QUINONES CELESTINO UNIT: [id number] ADM DATE: 08/16/18 AGE: 72 : 47 SEX: F ROOM/BED: D.2209 AUTHOR: NEYMAR,DOC PHYSICIAN: REFERRING PHYSICIAN: DANIELA AMBRIZ DO DATE OF SERVICE: 08/25/18 Discharge Plan Patient Name: LUIS A QUINONES Facility: [facility]:[place] : 1945 Planned Disposition: Long Term Facility Anticipated Discharge Date: Discharge Date: Expected LOS: Initial Reviewer: [id number] Initial Review Date: 08/16/2018 Generated: 08/25/18 1:22 pm Comments DCP- Discharge Planning Updated by [email or web address]: Angeline Hartman on 08/25/18 11:[address] Spoke with Yasmine Tavarez she stated to start the process to get her DC that it will be approved and clinicals given to them over the phone. I called Farida with [facility] and she is going to set up transportation DCP- Discharge Planning Updated by [id number]: Angeline Hartman on 08/25/18 11:[address] Spoke with Farida at [facility] she is still waiting on Auth DCP- Discharge Planning Updated by [email or web address]: Angeline Hartman on 08/24/18 10:[address] Anticipated DC tomorrow to [facility]. IMM served and explained. DCP- Discharge Planning Updated by [email or web address]: Angeline Hartman on 08/24/18 10:[address] spoke with farida at [facility] she is sending clinicals in before lunch. CM will continue to follow and assist with dc planning DCP- Discharge Planning Updated by [email or web address]: Angeline Hartman on 08/24/18 7:[address] updated clinical sent to [facility] DCP- Discharge Planning Updated by [email or web address]: Angeline Hartman on 08/19/18 1:[address] Patient Name: LUIS A QUINONES Admission Status: Elective Accout number: [id number] Admission Date: 08-16-2018 : 1945 Admission Diagnosis:UNILATERAL PRIMARY OSTEOARTHRITIS, LEFT KNEE Attending: DANIELA AMBRIZ Current LOS: 3 Anticipated DC Date: Planned Disposition: Long Term Facility [facility] Discharge Planning Comments: CM met with patient to assess discharge planning needs. Patient stated that she lives independent with her daughter. At discharge she plans to go to [facility] for rehab. She stated that her daughter work there and that is where she wants to go. She has a managed medicare, so she will need pre-auth before she can go. I called Farida at [facility] and she stated that they will not have a room till wed or and she can not start on the auth till closer to then because they are only good for 48 hours. I went and spoke with patient again and she still wants [facility]. CM will continue to follow and assist. Felt Hat Steamer: Angeline Hartman DCP- Discharge Planning Updated by [email or web address]: Angeline Hartman on 08/18/18 8:[address] REFERRAL SENT TO [facility] (DR AMBRIZ STATED THAT IS WHERE THE PATIENT WANTS TO GO) TO START THE AUTH PROCESS. DCPIA - Discharge Planning Initial Assessment Updated by [email or web address]: Angeline Hartman on 08/19/18 2:20 pm * Is the patient Alert and Oriented? Yes * How many steps to enter\exit or inside your home? * PCP THELMA * Pharmacy [facility] * Preadmission Environment Home with Family * ADLs Independent * Equipment Cane Walker * List name and contact numbers for known caregivers / representatives who currently or will assist patient after discharge: TETO BARNETT (DAUGHTER) [phone] * Verbal permission to speak to the caregivers and representatives has been obtained from the patient. N/A * Community resources currently utilized None * Additional services required to return to the preadmission environment? Yes * Can the patient safely return to the preadmission environment? No * Has this patient been hospitalized within the prior 30 days at any hospital? No Coverage Notice Reviewer: [id number] Krysta Hartman Notice Issued Date-Time: 08/19/2018 14:10 Notice Type: Patient Choice Letter Notice Delivered To: Patient Relationship to Patient: Blind Stitch Machine Operator Name: Delivery Method: HAND - Hand Delivered Maria C Days: Prior Verbal Notification: Recipient Understood Notice: Yes Recipient Signature: Yes Med Rec Note Co-signed by Attending: Coverage Notice Comment: Reviewer: [id number] - Angeline Harmtan Notice Issued Date-Time: 08/24/2018 11:50 Notice Type: IM Discharge Notice Notice Delivered To: Patient Relationship to Patient: Blind Stitch Machine Operator Name: Delivery Method: HAND - Hand Delivered Maria C Days: Prior Verbal Notification: Recipient Understood Notice: Yes Recipient Signature: Yes Med Rec Note Co-signed by Attending: Coverage Notice Comment: Last DP export: 08/25/18 11:13 am Patient Name: LUIS A QUINONES Page 93540 at 1222 All edits/amendments must be made on the electronic document DICTATION DATE: 08/25/18 1221 SALES MANAGEMENT TRAINEE: CLIFF 08/25/18 1221 RPT#: [id number] DC DATE: STATUS: ADM IN [facility] [address] [place] [address] END OF REPORT
--- NOTE | 2018-08-25 12:38 | NUR ---
UP IN CHAIR AT BEDSIDE. DENIES PAIN. DENIES NEEDS. PERSONAL ITEMS AND CALL LIGHT IN REACH.
--- NOTE | 2018-08-25 12:58 | MORECARE ---
CASE MANAGEMENT DISCHARGE SUMMARY PATIENT: LUIS A QUINONES CELESTINO UNIT: [id number] ADM DATE: 08/16/18 AGE: 72 : [birth year] SEX: F ROOM/BED: D.2209 AUTHOR: HIRAL BLACKMON PHYSICIAN: REFERRING PHYSICIAN: DANIELA AMBRIZ DO DATE OF SERVICE: 08/25/18 Discharge Plan Patient Name: LUIS A QUINONES Facility: [facility]:[place] : 1945 Planned Disposition: Senior Care Facility Anticipated Discharge Date: Discharge Date: Expected LOS: Initial Reviewer: [id number] Initial Review Date: 08/16/2018 Generated: 08/25/18 1:58 pm Comments DCP- Discharge Planning Updated by [email or web address]: Angeline Hartman on 08/25/18 11:[address] Patient being discharged today to [facility] to a skilled bed. They will be picking her up today. I attempted to call her daughter and the number that is on file is not a working number. CM to follow as needed DCP- Discharge Planning Updated by [email or web address]: Angeline Hartman on 08/25/18 11:[address] Spoke with Yasmine Tavarez she stated to start the process to get her DC that it will be approved and clinicals given to them over the phone. I called Farida with [facility] and she is going to set up transportation DCP- Discharge Planning Updated by [id number]: Angeline Hartman on 08/25/18 11:[address] Spoke with Farida at [facility] she is still waiting on Auth DCP- Discharge Planning Updated by [email or web address]: Angeline Hartman on 08/24/18 10:[address] Anticipated DC tomorrow to [facility]. IMM served and explained. DCP- Discharge Planning Updated by [email or web address]: Angeline Hartman on 08/24/18 10:[address] spoke with farida at [facility] she is sending clinicals in before lunch. CM will continue to follow and assist with dc planning DCP- Discharge Planning Updated by [email or web address]: Angeline Hartman on 08/24/18 7:[address] updated clinical sent to [facility] DCP- Discharge Planning Updated by [email or web address]: Angeline Hartman on 08/19/18 1:[address] Patient Name: LUIS A QUINONES Admission Status: Elective Accout number: [id number] Admission Date: 08-16-2018 : 1945 Admission Diagnosis:UNILATERAL PRIMARY OSTEOARTHRITIS, LEFT KNEE Attending: DANIELA AMBRIZ Current LOS: 3 Anticipated DC Date: Planned Disposition: Senior Care Facility [facility] Discharge Planning Comments: CM met with patient to assess discharge planning needs. Patient stated that she lives independent with her daughter. At discharge she plans to go to [facility] for rehab. She stated that her daughter work there and that is where she wants to go. She has a managed medicare, so she will need pre-auth before she can go. I called Farida at [facility] and she stated that they will not have a room till wed or and she can not start on the auth till closer to then because they are only good for 48 hours. I went and spoke with patient again and she still wants [facility]. CM will continue to follow and assist. Informatics Analyst: Angeline Hartman DCP- Discharge Planning Updated by [email or web address]: Angeline Hartman on 08/18/18 8:[address] REFERRAL SENT TO [facility] (DR AMBRIZ STATED THAT IS WHERE THE PATIENT WANTS TO GO) TO START THE AUTH PROCESS. DCPIA - Discharge Planning Initial Assessment Updated by [email or web address]: Angeline Hartman on 08/19/18 2:20 pm * Is the patient Alert and Oriented? Yes * How many steps to enter\exit or inside your home? * PCP THELMA * Pharmacy [facility] * Preadmission Environment Home with Family * ADLs Independent * Equipment Cane Walker * List name and contact numbers for known caregivers / representatives who currently or will assist patient after discharge: TETO BARNETT (DAUGHTER) [phone] * Verbal permission to speak to the caregivers and representatives has been obtained from the patient. N/A * Community resources currently utilized None * Additional services required to return to the preadmission environment? Yes * Can the patient safely return to the preadmission environment? No * Has this patient been hospitalized within the prior 30 days at any hospital? No Coverage Notice Reviewer: [id number] Krysta Hartman Notice Issued Date-Time: 08/19/2018 14:10 Notice Type: Patient Choice Letter Notice Delivered To: Patient Relationship to Patient: Tooth Cutter Pinion Name: Delivery Method: HAND - Hand Delivered Maria C Days: Prior Verbal Notification: Recipient Understood Notice: Yes Recipient Signature: Yes Med Rec Note Co-signed by Attending: Coverage Notice Comment: Reviewer: [email or web address] Krysta Hartman Notice Issued Date-Time: 08/24/2018 11:50 Notice Type: IM Discharge Notice Notice Delivered To: Patient Relationship to Patient: Tooth Cutter Pinion Name: Delivery Method: HAND - Hand Delivered Maria C Days: Prior Verbal Notification: Recipient Understood Notice: Yes Recipient Signature: Yes Med Rec Note Co-signed by Attending: Coverage Notice Comment: Last DP export: 08/25/18 11:22 am Patient Name: LUIS A QUINONES Page 97892 at 1258 All edits/amendments must be made on the electronic document DICTATION DATE: 08/25/18 1257 ENVIRONMENTAL SYSTEMS COORDINATOR: CLIFF 08/25/18 1257 RPT#: [id number] DC DATE: STATUS: ADM IN [facility] [address] [place] [address] END OF REPORT
--- NOTE | 2018-08-25 13:23 | NUR ---
DISCHARGE EDUCATION PROVIDED BOTH WRITTEN AND VERBAL. VERBALIZED UNDERSTANDING. DENIES FURTHER QUESTIONS. IV REMOVED FROM RFA WITH TIP INTACT. NEW DRSG APPLIED TO LEFT KNEE. TWO ADDITIONAL DRESSINGS PROVIDED. INCISION C/D/I WITHOUT REDNESS. DISCHARGED TO [facility] WITH ALL BELONGINGS.
--- NOTE | 2018-08-25 16:18 | NUR ---
OT NOTE: PT COMPLETED BED MOB , SIT TO STAND, AND TRANSFER WITH MIN A. [id number] THANK YOU, LAMONT [facility] RIO
--- NOTE | 2018-08-25 16:54 | NUR ---
OT NOTE: PT PERFORMED VERY WELL IN AM. BED MOB WITH VERY MINIMAL ASSIST; GOOD STATIC SITTING ON EOB; ABLE TO SCOOT TO EOB WITH MIN ASSIST; SIT TO STAND WITH MIN/MOD ASSIST X 2 AND USE OF RW. PERFORMED SEVERAL TRIALS OF THIS, THEN HAD PT TRANSFER FROM BED TO CHAIR WITH WALKER..PT PERFORMED VERY WELL. INSTRUCTED ON WC PUSHUPS FOR UE STRENGTHENING AND ALSO TO ASSIST WITH SCOOTING BACK IN CHAIR, WHICH SHE DID WELL. PT CONT TO REQUIRE EXT ASSIST WITH TOILET HYGIENE BUT DOES WELL WITH GROOMING AND UPPER BODY BATHING. ASSISTED PT IN PM WITH TRANSFER FROM CHAIR TO WC, SHE WAS BEING TRANSFERRED TO SNF. PT AGAIN DID VERY WELL. TRANSFER WITH MIN/MOD ASSIST, ENCOURAGEMENT, AND USE OF WALKER. WILL DO WELL WITH CONTINUED THERAPY PT IS MOTIVATED TO RETURN TO [facility]. LINDA TYSON, OTR/L
--- NOTE | 2018-08-29 08:18 | MORECARE ---
CASE MANAGEMENT DISCHARGE SUMMARY PATIENT: LUIS A QUINONES CELESTINO UNIT: [id number] ADM DATE: 08/16/18 AGE: 72 : [birth year] SEX: F ROOM/BED: D.2206 AUTHOR: NEYMAR,HIRAL PHYSICIAN: REFERRING PHYSICIAN: DANIELA AMBRIZ DO DATE OF SERVICE: 08/29/18 Discharge Plan Patient Name: LUIS A QUINONES Facility: [facility]:[place] : 1945 Planned Disposition: [facility] Facility Anticipated Discharge Date: Discharge Date: 08/25/2018 Expected LOS: Initial Reviewer: [email or web address] Initial Review Date: 08/16/2018 Generated: 08/29/18 9:18 am Comments DCP- Discharge Planning Updated by [email or web address]: Angeline Hartman on 08/25/18 11:[address] Patient being discharged today to [facility] to a skilled bed. They will be picking her up today. I attempted to call her daughter and the number that is on file is not a working number. CM to follow as needed DCP- Discharge Planning Updated by [email or web address]: Angeline Hartman on 08/25/18 11:[address] Spoke with Yasmine Tavarez she stated to start the process to get her DC that it will be approved and clinicals given to them over the phone. I called Farida with [facility] and she is going to set up transportation DCP- Discharge Planning Updated by [email or web address]: Angeline Hartman on 08/25/18 11:[address] Spoke with Farida at [facility] she is still waiting on Auth DCP- Discharge Planning Updated by [email or web address]: Angeline Hartman on 08/24/18 10:[address] Anticipated DC tomorrow to [facility]. IMM served and explained. DCP- Discharge Planning Updated by [email or web address]: Angeline Hartman on 08/24/18 10:[address] spoke with farida at [facility] she is sending clinicals in before lunch. CM will continue to follow and assist with dc planning DCP- Discharge Planning Updated by [email or web address]: Angeline Hartman on 08/24/18 7:[address] updated clinical sent to [facility] DCP- Discharge Planning Updated by [email or web address]: Angeline Hartman on 08/19/18 1:[address] Patient Name: LUIS A QUINONES Admission Status: Elective Accout number: [id number] Admission Date: 08-16-2018 : 1945 Admission Diagnosis:UNILATERAL PRIMARY OSTEOARTHRITIS, LEFT KNEE Attending: ADNIELA AMBRIZ Current LOS: 3 Anticipated DC Date: Planned Disposition: [facility] Facility Primary Insurance: [facility] Discharge Planning Comments: CM met with patient to assess discharge planning needs. Patient stated that she lives independent with her daughter. At discharge she plans to go to [facility] for rehab. She stated that her daughter work there and that is where she wants to go. She has a managed medicare, so she will need pre-auth before she can go. I called Farida at [facility] and she stated that they will not have a room till wed or and she can not start on the auth till closer to then because they are only good for 48 hours. I went and spoke with patient again and she still wants [facility]. CM will continue to follow and assist. Carton Catcher: Angeline Hartman DCP- Discharge Planning Updated by [email or web address]: Angeline Hartman on 08/18/18 8:[address] REFERRAL SENT TO [facility] (DR AMBRIZ STATED THAT IS WHERE THE PATIENT WANTS TO GO) TO START THE AUTH PROCESS. DCPIA - Discharge Planning Initial Assessment Updated by [email or web address]: Angeline Hartman on 08/19/18 2:20 pm * Is the patient Alert and Oriented? Yes * How many steps to enter\exit or inside your home? * PCP [facility] * [facility] * Preadmission Environment Home with Family * ADLs Independent * Equipment Cane Walker * List name and contact numbers for known caregivers / representatives who currently or will assist patient after discharge: TETO BARNETT (DAUGHTER) [phone] * Verbal permission to speak to the caregivers and representatives has been obtained from the patient. N/A * Community resources currently utilized None * Additional services required to return to the preadmission environment? Yes * Can the patient safely return to the preadmission environment? No * Has this patient been hospitalized within the prior 30 days at any hospital? No Coverage Notice Reviewer: [email or web address] Krysta Hartman Notice Issued Date-Time: 08/19/2018 14:10 Notice Type: Patient Choice Letter Notice Delivered To: Patient Relationship to Patient: Family Services Worker Name: Delivery Method: HAND - Hand Delivered Maria C Days: Prior Verbal Notification: Recipient Understood Notice: Yes Recipient Signature: Yes Med Rec Note Co-signed by Attending: Coverage Notice Comment: Reviewer: [email or web address] Krysta Hartman Notice Issued Date-Time: 08/24/2018 11:50 Notice Type: IM Discharge Notice Notice Delivered To: Patient Relationship to Patient: Family Services Worker Name: Delivery Method: HAND - Hand Delivered Maria C Days: Prior Verbal Notification: Recipient Understood Notice: Yes Recipient Signature: Yes Med Rec Note Co-signed by Attending: Coverage Notice Comment: Last DP export: 08/25/18 11:58 am Patient Name: LUIS A QUINONES Page [id number] at 0818 All edits/amendments must be made on the electronic document DICTATION DATE: 08/29/18816 BEHAVIOUR SUPPORT TEACHER: CLIFF 08/29/18816 RPT#: [id number] DC DATE:08/25/18 STATUS: DIS IN [facility] [address] [place] [address] END OF REPORT
== END 2018-08-25 13:30 | DRG 470 ==
LOC: D.MS 08-16 05:10 → D.SDCHOLD 08-16 05:10 → D.MS 08-16 15:35
PROVIDERS: Family Medicine; Internal Medicine Nephrology; ADMIT Orthopaedic Surgery; ATTEND Orthopaedic Surgery
PROC: 0SRD0J9 Replacement of Left Knee Joint with Synthetic Substitute, Cemented, Open Approach (ICD-10-PCS; principal; 2018-08-16 07:30)
DX: M17.12 Unilateral primary osteoarthritis, left knee (principal); Z68.41 Body mass index [BMI] 40.0-44.9, adult; I10 Essential (primary) hypertension; Z87.891 Personal history of nicotine dependence; J44.9 Chronic obstructive pulmonary disease, unspecified; E66.9 Obesity, unspecified

== ENCOUNTER 2019-04-27 08:06 | Outpatient (CLI) | payer OTHER ==
[~2019-04-27] VITALS: Ht 167.6 cm; Wt 157.7 kg
[~2019-04-27 08:06] MED LIST: ELIQUIS2.5 MG PO; HYDROCODON-ACE1 EAC7 PO; IPRAT-ALBUT 0.5-3 ML UPD; KEFLEX500 MG PO; MOBIC7.5 MG PO; TOPROL XL25 MG PO; [UNRECOGNIZED DRUG - REMARK] PO; triam/hctz
[2019-04-27 08:24] LABS: BASOPHILS 0 % (0-2); EOSINOPHILS 1.7 % (0-7); HEMATOCRIT 33.6 % (36.0-48.0); HEMOGLOBIN 9.6 g/dL (12-16); IMMATURE GRANULOCYTES 0.5 % (0-5); LYMPHOCYTES 9.3 % (15-50); MCH 28.8 pg (26.0-34.0); MCHC 28.6 g/dL (31.0-37.0); MCV 100.9 fL (80.0-100.0); MEAN PLATELET VOLUME 8.4 fL (7.4-10.4); MONOCYTES 11.2 % (2-11); NEUTROPHILS 77.3 % (40-80); PLATELET COUNT 305 10x3/uL (130-400); RBC 3.33 10x6/uL (4.00-5.40); RDW 17.3 % (11.5-14.5); WBC 5.7 10x3/uL (4.8-10.8)
[2019-04-27 08:31] LABS: CALC OSMOLALITY 287 mosm/kg (275-300); CALCIUM 8.5 mg/dL (8.5-10.1); CHLORIDE - SERUM 101 mmol/L (98-107); CREATININE - SERUM 0.5 mg/dL (0.6-1.3); GLUCOSE 87 mg/dL (74-106); POTASSIUM - SERUM 4.2 mmol/L (3.5-5.1); SODIUM 144 mmol/L (136-145); UREA NITROGEN 19 mg/dL (7-18); eGFR NON AFRICAN AMERICAN > 90 mL/min (90-120)
[2019-04-27 08:42] LABS: CARBON DIOXIDE 43.3 mmol/L (21.0-32.0)
[2019-04-27 08:53] LABS: INR 1.08 (0.85-1.17); PROTIME 13.5 SECONDS (11.6-15.0)
[2019-04-27 08:54] LABS: APTT 29.8 SECONDS (22.8-39.4)
[2019-04-27 09:23] VITALS: BP 135/78; Ht 167.6 cm; Wt 157.7 kg
[2019-04-27] MEDS ORDERED: ACETAMINOPHEN325 MG PO (09:34)
[2019-04-27] MEDS ORDERED: CELEXA10 MG PO (09:35)
[2019-04-27] MEDS ORDERED: CALCIUM 600 +1 EAC3 PO (09:35)
[2019-04-27] MEDS ORDERED: LASIX80 MG PO ×2 (09:36→09:37)
[2019-04-27] MEDS ORDERED: MOBIC7.5 MG PO (09:38)
[2019-04-27] MEDS ORDERED: MELATONIN 3 MG1 TAB PO (09:38)
[2019-04-27] MEDS ORDERED: TOPROL XL25 MG (09:39)
[2019-04-27] MEDS ORDERED: PERCOCET 5-3251 TAB PO (09:40)
[2019-04-27] MEDS ORDERED: SENNA LAXATIVE8.6 MG PO (09:41)
[2019-04-27] MEDS ORDERED: ULTRAM50 MG PO (09:46)
[2019-04-27 09:54] LABS: ALBUMIN 1.9 g/dL (3.4-5.0); ALKALINE PHOSPHATASE 110 U/L (46-116); ALT (SGPT) 10 U/L (10-68); BILIRUBIN - TOTAL 0.28 mg/dL (0.2-1.3); PROTEIN - SERUM 5.5 g/dL (6.4-8.2)
--- NOTE | 2019-04-27 11:35 | NUR ---
1120-RECD TO ROOM 2518 FROM SPECIALS. ALERT. IV PATENT R HAND. DRESSING TO ABD DRY AND INTACT. O2 ON AT 2L PER NC, RESP WITH EASE.
--- NOTE | 2019-04-27 15:35 | NUR ---
1120 RECORDING VITAL SIGNS ON POST PROCEDURE FORM AND IN PAPER CHART.
--- NOTE | 2019-04-27 15:37 | NUR ---
1320 ALBUMIN INFUSION COMPLETED. FLUSHED LINE WITH IV FLUIDS AND THEN DC'D IV. CATHETER TIP INTACT. PRESSURE HELD UNTIL BLEEDING CEASED. BANDAID APPLIED. 1345 PT DRESSED BY NURSING STAFF. LIFTING HELP AT BEDSIDE. PT TRANSFERRED FROM BED INTO WHEELCHAIR SAFELY AND WITHOUT INCIDENT. PT HAS HER PORTABLE BNC 2L/MIN ON. OXYGEN HAS BEEN ON PT THROUGHOUT HER ENTIRE STAY AT [facility]. 1400 PT TRANSFERRED TO HER HOME IN AND ON OXYGEN BY TRANSPORATION STAFF FROM LONG-TERM.
== END 2019-04-27 14:00 | disposition home or self-care (01) ==
LOC: D.SP 08:06 → D.CT 10:00 → D.SP 10:00
PROVIDERS: Specialist; ATTEND Legal Medicine
DX: R18.8 Other ascites (principal)

== ENCOUNTER → 2019-05-18 14:35 | Outpatient (CLI) | payer OTHER ==
[2019-04-27 09:23] VITALS: BMI 56.1
[~2019-05-18 14:35] MED LIST changes: +ACETAMINOPHEN325 MG PO; +CALCIUM 600 +1 EAC3 PO; +CELEXA10 MG PO; +LASIX80 MG PO; +MELATONIN 3 MG1 TAB PO; +PERCOCET 5-3251 TAB PO; +SENNA LAXATIVE8.6 MG PO; +TOPROL XL25 MG; +ULTRAM50 MG PO
[2019-05-18 16:59] LABS: BASOPHILS 0 % (0-2); EOSINOPHILS 0.3 % (0-7); HEMATOCRIT 29.3 % (36.0-48.0); HEMOGLOBIN 8.5 g/dL (12-16); IMMATURE GRANULOCYTES 1.7 % (0-5); LYMPHOCYTES 12.9 % (15-50); MCH 28.4 pg (26.0-34.0); MEAN PLATELET VOLUME 10.9 fL (7.4-10.4); MONOCYTES 3.8 % (2-11); NEUTROPHILS 81.3 % (40-80); RBC 2.99 10x6/uL (4.00-5.40); WBC 2.9 10x3/uL (4.8-10.8)
[2019-05-18 17:09] LABS: ALKALINE PHOSPHATASE 89 U/L (46-116); ALT (SGPT) 12 U/L (10-68); BILIRUBIN - TOTAL 0.41 mg/dL (0.2-1.3); CALC OSMOLALITY 282 mosm/kg (275-300); CALCIUM 7.7 mg/dL (8.5-10.1); CHLORIDE - SERUM 94 mmol/L (98-107); CREATININE - SERUM 0.4 mg/dL (0.6-1.3); GLUCOSE 75 mg/dL (74-106); PLATELET COUNT 13 10x3/uL (130-400); PROTEIN - SERUM 4.8 g/dL (6.4-8.2); SODIUM 143 mmol/L (136-145); UREA NITROGEN 11 mg/dL (7-18); eGFR NON AFRICAN AMERICAN > 90 mL/min (90-120)
[2019-05-18 17:13] LABS: POTASSIUM - SERUM 2.9 mmol/L (3.5-5.1)
[2019-05-18 18:02] LABS: PLATELET ESTIMATE DECREASED
== END | disposition home or self-care (01) ==
LOC: D.LABREF 14:35
PROVIDERS: ATTEND Legal Medicine
DX: C56.9 Malignant neoplasm of unspecified ovary (principal)

== ENCOUNTER → 2019-10-04 18:35 | Outpatient (CLI) | payer OTHER ==
[2019-05-19 15:26] VITALS: BMI 56.0
[~2019-10-04 18:35] MED LIST changes: -TOPROL XL25 MG
[2019-10-04 19:22] LABS: ALBUMIN 3.3 g/dL (3.4-5.0); ALKALINE PHOSPHATASE 90 U/L (30-120); ALT (SGPT) 16 U/L (10-68); BILIRUBIN - TOTAL 0.24 mg/dL (0.2-1.3); CALC OSMOLALITY 280 mosm/kg (275-300); CALCIUM 8.6 mg/dL (8.5-10.1); CHLORIDE - SERUM 105 mmol/L (98-107); CREATININE - SERUM 0.7 mg/dL (0.6-1.3); GLUCOSE 82 mg/dL (74-106); POTASSIUM - SERUM 3.9 mmol/L (3.5-5.1); PROTEIN - SERUM 5.8 g/dL (6.4-8.2); SODIUM 141 mmol/L (136-145); UREA NITROGEN 16 mg/dL (7-18); eGFR NON AFRICAN AMERICAN 87 mL/min (90-120)
[2019-10-04 21:24] LABS: HEMATOCRIT 30.2 % (36.0-48.0); HEMOGLOBIN 9.2 g/dL (12-16); MCH 34.5 pg (26.0-34.0); MCHC 30.5 g/dL (31.0-37.0); MCV 113.1 fL (80.0-100.0); MEAN PLATELET VOLUME 9.8 fL (7.4-10.4); RBC 2.67 10x6/uL (4.00-5.40); RDW 18.1 % (11.5-14.5); WBC 4.1 10x3/uL (4.8-10.8)
[2019-10-04 21:47] LABS: PLATELET COUNT 237 10x3/uL (130-400)
[2019-10-04 21:49] LABS: EOSINOPHILS 2 % (0-7); LYMPHOCYTES 48 % (15-50); NEUTROPHILS 50 % (40-80); PLATELET ESTIMATE NORMAL
== END | disposition home or self-care (01) ==
LOC: D.LABREF 18:35
PROVIDERS: ATTEND Legal Medicine
DX: C56.9 Malignant neoplasm of unspecified ovary (principal)

== ENCOUNTER 2019-10-20 14:26 | Outpatient (CLI) | payer OTHER ==
[~2019-10-20] VITALS: Ht 167.6 cm; Wt 105.2 kg
[2019-10-20 15:34] VITALS: BP 133/69; Ht 167.6 cm; Wt 105.2 kg
== END 2019-10-20 16:11 | disposition home or self-care (01) ==
LOC: D.OPS 14:26
PROVIDERS: ATTEND Legal Medicine
DX: R11.2 Nausea with vomiting, unspecified (principal); C56.9 Malignant neoplasm of unspecified ovary; J44.9 Chronic obstructive pulmonary disease, unspecified; R19.00 Intra-abdominal and pelvic swelling, mass and lump, unspecified site; M17.32 Unilateral post-traumatic osteoarthritis, left knee; I10 Essential (primary) hypertension; E66.01 Morbid (severe) obesity due to excess calories; K21.9 Gastro-esophageal reflux disease without esophagitis; E78.5 Hyperlipidemia, unspecified; F32.89 Other specified depressive episodes; G47.00 Insomnia, unspecified; D61.818 Other pancytopenia; D69.6 Thrombocytopenia, unspecified; D64.9 Anemia, unspecified; E87.6 Hypokalemia